=== PATIENT | male | born 2000 | race Caucasian/White ===

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

== ENCOUNTER → 2018-12-04 13:57 | Emergency (ER) | payer OTHER ==
[~2018-12-04 13:57] MED LIST changes: +Bacitracin OINTMENT* 0.5% 0.5 oz TUBE TOPICAL ONE; -Ibuprofen TAB* 600 MG PO ONE
--- NOTE | 2018-12-04 14:13 | ED ---
Laceration/Wound HPI - HPI Summary HPI Summary: A 18 y/o male presents to [facility] with a chief complaint of a left foot laceration after stepping on a piece of glass. He reportedly stepped on a stanislaw jar. Per triage note the patient rated his pain as a 6/10 in severity, sharp shooting in L foot and his tetanus is UTD. The laceration is about 2 cm laceration on the bottom of his foot. He takes seroquel and Trazodone. FHx of DM , cardiac disease and cancer. - History of Current Complaint Stated Complaint: FOOT INJURY PER PT Time Seen by Provider: 12/04/18 14:01 Hx Obtained From: Patient Onset/Duration: Sudden Onset, Lasting Minutes, Still Present Aggravating: Nothing Alleviating: Nothing Onset Severity: Moderate Current Severity: Moderate Pain Intensity: 6 Pain Scale Used: 0-10 Numeric Associated Signs & Symptoms: Negative - Allergy/Home Medications Allergies/Adverse Reactions: Allergies Allergy/AdvReac Type Severity Reaction Status Date / Time No Known Allergies Allergy Verified 12/04/18 14:00 PMH/Surg Hx/FS Hx/Imm Hx Endocrine/Hematology History: Denies: Hx Diabetes Cardiovascular History: Reports: Other Cardiovascular Problems/Disorders - HX [id number]. DX LAST YEAR Denies: Hx Hypertension, Hx Pacemaker/ICD Respiratory History: Reports: Other Respiratory Problems/Disorders - Hx Pneumothorax GI History: Reports: Hx Gastroesophageal Reflux Disease History: Denies: Hx Renal Disease Sensory History: Denies: Hx Hearing Aid Psychiatric History: Reports: Hx Anxiety - ON DAILY MEDS, Hx Depression Denies: Hx Panic Disorder - Surgical History Surgery Procedure, Year, and Place: PT IS TERRIFIED OF NEEDLES. LEFT KNEE SURGERY DISLOCATED KNEE AND IT HEALED WRONG AND HAD TO BE RESET 11/2014 - Immunization History Date of Tetanus Vaccine: utd Infectious Disease History: No Infectious Disease History: Denies: Traveled Outside the [place] in Last 30 Days - Family History Known Family History: Positive: Cardiac Disease, Diabetes - Social History Alcohol Use: None Substance Use Type: Reports: None Hx Tobacco Use: No - Patient does "vape" Smoking Status (MU): Light Every Day Tobacco Smoker Have You Smoked in the Last Year: No Review of Systems Negative: Fever Positive: Other - positive: 2cm laceration on the bottom of foot All Other Systems Reviewed And Are Negative: Yes Physical Exam - Summary Physical Exam Summary: General: Well appearing, no distress HEENT: PERRL Cardiovascular: Skin is well perfused Pulmonary: No respiratory distress, no tachypnea Abdomen: Non-distended Skin: Warm, pink, dry, 2cm laceration well approximating to plantar surface L foot MSK: No edema, no bony tenderness of the left foot, 2+ DP pulse Psych: Normal affect Neuro: A&Ox3 Triage Information Reviewed: Yes Vital Signs On Initial Exam: Initial Vitals Temp Pulse Resp BP Pulse Ox 98.4 F 79 16 148/89 97 12/04/18 13:58 12/04/18 13:58 12/04/18 13:58 12/04/18 13:58 12/04/18 13:58 Vital Signs Reviewed: Yes Diagnostics - Vital Signs Vital Signs Temp Pulse Resp BP Pulse Ox 12/04/18 13:58 98.4 F 79 16 148/89 97 - Laboratory Lab Statement: Any lab studies that have been ordered have been reviewed, and results considered in the medical decision making process. - Radiology Foot x-ray Radiology Interpretation Completed By: ED Physician - The foreign body noted on the X-ray is not near his laceration, Radiologist Summary of Radiographic Findings: 0.2 CM RADIOPAQUE FOREIGN BODY SEEN IN THE SUBCUTANEOUS SOFT TISSUES ALONG THE PLANTAR. SURFACE OF THE FOOT ON THE LATERAL VIEW ONLY CONSISTENT WITH THE HISTORY OF PENETRATING. TRAUMA. ED physician has reviewed this imaging report. Re-Evaluation - Re-Evaluation First Eval Change: Improved - 15:20 XR w FB but not near location of laceration. D/w family he may have sm amount of glass but I cannot visualize it on XR. Plan to leave open given that its superficial. Cleansed and dressed w bacitracin Laceration Repair Course/Dx - Clinical Impression Provider Diagnoses: Laceration, Foreign body Discharge - Sign-Out/Discharge Documenting (check all that apply): Patient Departure - DC Patient Received Moderate/Deep Sedation with Procedure: No - Discharge Plan Condition: Stable Disposition: HOME Patient Education Materials: Laceration (DC) Referrals: Jonnathan Ruvalcaba, ADVERTISING TEACHER [Primary Care Provider] - Additional Instructions: You were seen in the emergency department for a laceration. You may have a tiny piece of glass in your foot. This should come out on its own If any studies were not completed at the time of discharge you will be called with the relevant results. Please follow up with your primary care doctor in next 2-3 days and return to emergency department for worsening or concerning symptoms. - Billing Disposition and Condition Condition: STABLE Disposition: Home - Attestation Statements Document Initiated by [place]: Yes Documenting Scribe: Jeferson Christine Provider For Whom Alexandria is Documenting (Include Credential): Valentín Jordan MD Scribe Attestation: I, Jeferson Christine, scribed for Valentín Jordan MD on 12/04/18 at 1529. Scribe Documentation Reviewed: Yes Provider Attestation: The documentation as recorded by the Jeferson rangel accurately reflects the service I personally performed and the decisions made by me, Valentín Jordan MD Status of Scribe Document: Viewed
[2018-12-04 15:33] VITALS: BP 118/71
== END | disposition home or self-care (01) ==
LOC: ED 13:57
DX: S91.322A Laceration with foreign body, left foot, initial encounter (principal); W25.XXXA Contact with sharp glass, initial encounter; Y92.9 Unspecified place or not applicable; F17.210 Nicotine dependence, cigarettes, uncomplicated; K21.9 Gastro-esophageal reflux disease without esophagitis; F41.9 Anxiety disorder, unspecified; F32.9 Major depressive disorder, single episode, unspecified; Z79.899 Other long term (current) drug therapy
CPT/HCPCS: 99282; A9270-GY